=== PATIENT | female | born 1990 ===

== ENCOUNTER → 2020-03-01 09:28 | Outpatient (BNVA) | payer OTHER, SELFPAY | PROVIDERS: PCP Internal Medicine; Visit Provider Advanced Practice Midwife | DX: Z30.41 Encounter for surveillance of contraceptive pills (principal) | CPT/HCPCS: 99212 ==

== ENCOUNTER 2021-11-26 13:28 | Outpatient (REF) | payer OTHER, SELFPAY | END 2021-11-26 13:29 | disposition home or self-care (01) | LOC: HO.LAB 13:28 | PROVIDERS: Visit Provider Advanced Practice Midwife | DX: Z13.89 Encounter for screening for other disorder (principal) ==

== ENCOUNTER 2021-11-26 13:31 | Outpatient (REF) | payer OTHER, SELFPAY ==
[2021-11-26 15:00] LABS: Syphilis Screen Nonreactive (Nonreactive)
[2021-11-27 04:36] LABS: HBc Num1 0.08 S/CO (0.00-0.79); HIV AB/AG Nonreactive (Nonreactive); HIV Num 1 0.06 S/CO (0.00-0.99); Hepatitis B Core Antibody Nonreactive (Nonreactive); ~HepC Num1 0.06 S/CO (0.00-0.79); ~Hepatitis C Antibody Nonreactive (Nonreactive)
[2021-11-27 06:06] LABS: CT PCR NOT DETECTED (Not Detect.)
[2021-11-27 06:07] LABS: NG PCR DETECTED (Not Detect.)
== END 2021-11-26 13:32 | disposition home or self-care (01) ==
LOC: HO.LNP 13:31
PROVIDERS: Visit Provider Advanced Practice Midwife
DX: Z01.419 Encounter for gynecological examination (general) (routine) without abnormal findings (principal); Z11.4 Encounter for screening for human immunodeficiency virus [HIV]; Z20.2 Contact with and (suspected) exposure to infections with a predominantly sexual mode of transmission
CPT/HCPCS: 86704; 86780; 86803; 87389; 87491; 87591; 88142

== ENCOUNTER → 2021-11-28 12:35 | Outpatient (BNVA) | payer OTHER, SELFPAY | PROVIDERS: PCP Internal Medicine; Visit Provider Advanced Practice Midwife | DX: A54.9 Gonococcal infection, unspecified (principal) | CPT/HCPCS: 96372; 99211; J0696 ==

== ENCOUNTER 2022-02-26 12:42 | Outpatient (REF) | payer OTHER, SELFPAY ==
[2022-02-27 12:21] LABS: CT PCR NOT DETECTED (Not Detect.); NG PCR NOT DETECTED (Not Detect.)
== END 2022-02-26 12:43 | disposition home or self-care (01) ==
LOC: HO.LNP 12:42
PROVIDERS: PCP Internal Medicine; Visit Provider Advanced Practice Midwife
DX: Z11.3 Encounter for screening for infections with a predominantly sexual mode of transmission (principal); Z11.8 Encounter for screening for other infectious and parasitic diseases
CPT/HCPCS: 87491; 87591; 99212

== ENCOUNTER 2022-11-29 12:30 | Outpatient (AMB) | payer OTHER, SELFPAY ==
[2022-11-29 12:55] VITALS: BP 124/60; BMI 39.7
--- NOTE | 2022-11-29 12:55 | A.OFFVIS_ITS ---
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 Scribed for YUAN Wolf by Donna Mayo registered medical transcriptionist, on 11/29/2022 at 1:05 pm EST Machine Skiver Required: No Information Interpreted: non-clinical & clinical Correctional Probation Officer: Correctional Probation Officer Present (Aidyn) Allergies shellfish derived [SHELLFISH DERIVED] Allergy (Mild, Verified 11/29/22 12:58) rash shellfish Allergy (Unknown, Uncoded 11/29/22 12:58) anaphylaxis Is last menstrual period known: Yes Last menstrual period: 11/01/22 Post menopausal: No HPI HPI Comments History of Present Illness Details She is a premenopausal woman presenting for annual exam. She attempts to eat healthy and stays active at work. Currently sexually active with multiple partners (2). Uses condoms always for BC . Reports bleeding after intimacy occasionally. Has tried BC in the past and is not really interested in BC at this time due to side effects. Reports monthly periods that last approximately 4-5 days. States she is having a lot of heavy bleeding with blood clots 3/5 days for the past 3-4 months. She has to change her tampon every 30 minutes. Hx of anemia. Denies vaginal itching and irritation. Denies urinary issues. STD screening offered; she accepts. Denies family hx of breast, colon and ovarian cancer. Last pap smear 2021. [facility] Medical History Congenital hearing disorder of both ears Bipolar disorder Family History Maternal Grandmother Lung cancer Maternal Aunt Esophageal cancer Social History Alcohol intake: current Alcohol intake frequency: holidays/special occasions only Patient Tobacco Use Status: Never used Tobacco Current occupational status: student Sexual orientation: Straight/Heterosexual Gender identity: Female Female Reproductive History Menstrual Age of Menarche: 16 Duration of menses: 6-7 days Date of last menstrual period: 11/01/22 control method: none Total pregnancies: 3 Full term: 2 Number of Living Children: 2 Ab induced: 1 Date of last pap smear: 11/28/21 (negative) Review of Systems Const All systems reviewed & are unremarkable except as noted in HPI and below Reports abnormal menses Physical Exam Vital Signs: Last Vital Signs BP 124/60 11/29/22 12:55 BMI result Body Mass Index 39.7 Const General: cooperative, healthy appearing, no acute distress, well developed and alert Orientation/consciousness: patient oriented x3 HEENT Head: Yes normal to inspection Eyes General: appearance normal, both eyes and all related structures Neck Neck: Yes normal visual inspection Thyroid: Thyroid normal Chest Chest palpation & inspection: normal inspection of the chest Breast/axilla inspection: normal inspection of the breasts (no puckering, dimpling, peau de orange, retraction, discharge, masses) Breast/axilla palpation: normal palpation of the breasts Resp Effort & Inspection: normal respiratory effort GI Inspection: Yes normal to inspection Palpation (GI): Soft to palpation Rectal Exam - Female: deferred General: Yes bladder normal to palpation External Female Exam: normal external appearance and normal appearance of the urethra Speculum Exam - Vagina: normal appearance of the vagina, normal palpation and abnormal vaginal discharge (slightly yellow mucous like discharge) Speculum Exam - Cervix: normal appearance of the cervix (friable) and normal palpation Bimanual exam- vagina & uterus: normal bimanual exam, normal palpation, uterine size normal, bladder normal to palpation and normal palpation Bimanual Exam- Adnexa, other: normal adnexae and no masses Skin General skin exam: no rashes or lesions noted Neuro General: patient oriented x3 Cognition (Neuro): normal cognition Extrem General: Yes normal to inspection Psych Attitude: cooperative Thought process: Normal thought process present Assessment & Plan Assessment & Plan (1) Encounter for well woman exam: Code(s): Z01.419 - Encounter for gynecological examination (general) (routine) without abnormal findings Plan: Discussed: Current recommendations for pap smears per ASCCP guidelines. Breast awareness and periodic self breast exams. Maintaining a healthy lifestyle including a well balanced diet and routine exercise. Encouraged condom use for STD and prevention. All of her questions and concerns were addressed to the best of my ability. RTO in one year for AG. (2) Heavy menstrual bleeding: Code(s): N92.0 - Excessive and frequent menstruation with regular cycle Qualifiers: Menorrhagia type: with regular cycle Qualified Code(s): N92.0 - Excessive and frequent menstruation with regular cycle Plan: Discussed work up including pelvic US, labs. Go to ER with any prolonged or heavy bleeding. RTO for test results. (3) Potential exposure to STD: Code(s): Z20.2 - Contact with and (suspected) exposure to infections with a predominantly sexual mode of transmission (4) PCB (post coital bleeding): Code(s): N93.0 - Postcoital and contact bleeding Orders: Orders US pelvic and transvaginal Today N92.0 - Excessive and frequent menstruation with regular cycle HIV Ab/Ag Today Z20.2 - Contact with and (suspected) exposure to infections with a predominantly sexual mode of transmission Bacterial Vaginosis Panel Today N92.0 - Excessive and frequent menstruation with regular cycle, N93.0 - Postcoital and contact bleeding, Z20.2 - Contact with and (suspected) exposure to infections with a predominantly sexual mode of transmission CT NG by PCR Today N92.0 - Excessive and frequent menstruation with regular cycle, N93.0 - Postcoital and contact bleeding, Z20.2 - Contact with and (suspected) exposure to infections with a predominantly sexual mode of transmission Complete Blood Count no Diff Today N92.0 - Excessive and frequent menstruation with regular cycle Thyroid Stimulating Hormone Today N92.1 - Excessive and frequent menstruation with irregular cycle Hepatitis C Antibody Today Z20.2 - Contact with and (suspected) exposure to infections with a predominantly sexual mode of transmission Hepatitis B Core Antibody Today Z20.2 - Contact with and (suspected) exposure to infections with a predominantly sexual mode of transmission Syphilis Screen Today Z20.2 - Contact with and (suspected) exposure to infections with a predominantly sexual mode of transmission Coding Level of Care Code Est Pt Prev Care 18-39y(62746) Diagnoses Encounter for well woman exam Z01.419 Menorrhagia with regular cycle N92.0 Menorrhagia type: with regular cycle Potential exposure to STD Z20.2 PCB (post coital bleeding) N93.0
== END 2022-11-29 13:23 | disposition home or self-care (01) ==
PROVIDERS: Visit Provider Advanced Practice Midwife
DX: Z01.419 Encounter for gynecological examination (general) (routine) without abnormal findings (principal); N92.0 Excessive and frequent menstruation with regular cycle; Z20.2 Contact with and (suspected) exposure to infections with a predominantly sexual mode of transmission; N93.0 Postcoital and contact bleeding
CPT/HCPCS: 99395

== ENCOUNTER 2022-11-29 12:30 | Outpatient (REF) | payer OTHER, SELFPAY ==
[2022-11-29 13:57] LABS: Hemoglobin 12.9 g/dl (12.0-16.0); Mean Corpuscular HGB Conc 33.1 g/dl (31.0-35.0); Mean Corpuscular Hemoglobin 29.3 pg (27.0-33.0); Mean Corpuscular Volume 88.6 fL (80.0-98.0); Mean Platelet Volume 9.8 fL (9.4-12.3); Platelet Count 344 X10*3/uL (160-400); Red Cell Distribution Width 13.3 % (11.0-16.0); White Blood Count 10.1 X10*3/uL (4.8-10.8)
[2022-11-29 14:46] LABS: Thyroid Stimulating Hormone 0.57 uIU/mL (0.32-4.0)
[2022-11-29 17:57] LABS: CT PCR NOT DETECTED (Not Detect.); NG PCR NOT DETECTED (Not Detect.)
[2022-11-30 03:28] LABS: Syphilis Screen Nonreactive (Nonreactive)
[2022-11-30 03:46] LABS: HBc Num1 0.09 S/CO (0.00-0.79); HIV AB/AG Nonreactive (Nonreactive); HIV Num 1 0.07 S/CO (0.00-0.99); Hepatitis B Core Antibody Nonreactive (Nonreactive); ~HepC Num1 0.06 S/CO (0.00-0.79); ~Hepatitis C Antibody Nonreactive (Nonreactive)
[2022-11-30 11:09] LABS: BV Int Neg Control Negative (Negative); BV Int Pos Control Positive (Positive)
== END 2022-11-29 12:31 | disposition home or self-care (01) ==
LOC: HO.LAB 12:30
PROVIDERS: Visit Provider Advanced Practice Midwife
DX: N92.0 Excessive and frequent menstruation with regular cycle (principal); Z20.2 Contact with and (suspected) exposure to infections with a predominantly sexual mode of transmission; N93.0 Postcoital and contact bleeding
CPT/HCPCS: 0353U; 84443; 85027; 86704; 86780; 86803; 87389; 87480; 87510; 87660; 99395

== ENCOUNTER 2022-12-19 13:21 | Outpatient (REF) | payer OTHER, SELFPAY ==
--- NOTE | ~2022-12-19 | US_ITS ---
EXAMINATION: US PELVIS COMPLETE CLINICAL INFORMATION: Excessive and frequent bleeding COMPARISON: None TECHNIQUE: Transabdominal and transvaginal imaging was performed. FINDINGS: The uterus is of normal size and heterogeneous in echotexture measuring 9.2 x 5.1 x 6.0 cm. A regular homogeneous endometrium is identified measuring 0.9 cm. Fluid is noted in the endocervical canal. A 2.6 x 1.8 x 2.7 cm transmural myoma in the posterior body. Both ovaries are of normal size and echogenicity. The right measures 2.9 x 2.0 x 2.5 cm for a volume of 9.1 mL. The left measures 2.9 x 2.3 x 2.2 cm for a volume of 7.7 mL. There is no pelvic free fluid. US/US pelvic and transvaginal IMPRESSION: 1. A 2.7 cm transmural myoma in the posterior body. 2. Heterogeneous myometrial echotexture, nonspecific but if any clinical concern for adenomyosis MR pelvis could be obtained for definitive characterization. 3. Fluid is noted in the endocervical canal.
== END 2022-12-19 13:22 | disposition home or self-care (01) ==
LOC: HO.US 13:21
PROVIDERS: Visit Provider Advanced Practice Midwife
DX: N92.0 Excessive and frequent menstruation with regular cycle (principal)
CPT/HCPCS: 76830; 76856

== ENCOUNTER 2023-01-09 13:53 | Outpatient (AMB) | payer OTHER, SELFPAY ==
--- NOTE | 2023-01-09 14:10 | A.OFFVIS_ITS ---
Intake Vital Signs 01/09/23 14:11 Height 5 ft 6 in Weight 246 lb BMI 39.7 BP 122/80 Intake Visit Reasons: US follow up Intake Note: Scribed for Marysol Avina CNM by [facility] scribe, on 01/09/2023 at 2:36 PM, EST. Allergies shellfish derived [SHELLFISH DERIVED] Allergy (Mild, Verified 01/09/23 14:10) rash shellfish Allergy (Unknown, Uncoded 11/29/22 12:58) anaphylaxis Is last menstrual period known: Yes Last menstrual period: 01/04/23 HPI HPI Comments History of Present Illness Details The patient is a 32 year old premenopausal woman presenting today for a follow up due to pelvic pain, heavy menses. She reports her cycles are always painful. She doesn't feel OTC medication use, Ibuprofen 600 mg (3-200mg tablets), with food every 6 hours for the first 1-3days of menses only. helps much. She tried a muscle relaxant in the past that helped. She had cramps with the Mirena, gained 30lbs with the Implant, tried 3 different OCP's that made her feel off. She prefers not to take control. The patient had an ultrasound of her pelvis that showed a fibroid measuring 2.7cm. Last pap smear was UTD. [facility] Medical History Congenital hearing disorder of both ears Bipolar disorder Family History Maternal Grandmother Lung cancer Maternal Aunt Esophageal cancer Social History Alcohol intake: current Alcohol intake frequency: holidays/special occasions only Patient Tobacco Use Status: Never used Tobacco Current occupational status: student Sexual orientation: Straight/Heterosexual Gender identity: Female Female Reproductive History Menstrual Age of Menarche: 16 Duration of menses: 3-5 days Date of last menstrual period: 01/04/23 control method: none Review of Systems Const All systems reviewed & are unremarkable except as noted in HPI and below Physical Exam Vital Signs: Last Vital Signs BP 122/80 01/09/23 14:11 BMI result Body Mass Index 39.7 Other: Reports abnormal menses. Results Reviewed Results Reviewed: Ordering Physician: Marysol Avina CNM Date of Service: 12/19/22 Procedure(s): US pelvic and transvaginal Accession Number(s): [id number] cc: Marysol Avina CNM~ EXAMINATION: US PELVIS COMPLETE CLINICAL INFORMATION: Excessive and frequent bleeding COMPARISON: None TECHNIQUE: Transabdominal and transvaginal imaging was performed. FINDINGS: The uterus is of normal size and heterogeneous in echotexture measuring 9.2 x 5.1 x 6.0 cm. A regular homogeneous endometrium is identified measuring 0.9 cm. Fluid is noted in the endocervical canal. A 2.6 x 1.8 x 2.7 cm transmural myoma in the posterior body. Both ovaries are of normal size and echogenicity. The right measures 2.9 x 2.0 x 2.5 cm for a volume of 9.1 mL. The left measures 2.9 x 2.3 x 2.2 cm for a volume of 7.7 mL. There is no pelvic free fluid. US/US pelvic and transvaginal IMPRESSION: 1. A 2.7 cm transmural myoma in the posterior body. 2. Heterogeneous myometrial echotexture, nonspecific but if any clinical concern for adenomyosis MR pelvis could be obtained for definitive characterization. 3. Fluid is noted in the endocervical canal. Assessment & Plan Assessment & Plan (1) Encounter to discuss test results: Code(s): Z71.2 - Person consulting for explanation of examination or test findings Plan: Leiomyoma: common pelvic neoplasm. Differential diagnosis-may include leiomyosarcoma which is a rare uterine sarcoma 3-7/100,000, difficult to distinguish from fibroids on ultrasound from uterine sarcoma's. Unlikely any single test will have a highly positive predictive value. Hysterectomy is not recommended for sole purpose of excluding malignant neoplasm. Report any AUB. Pelvic pressure, bloating, or increased pain. Expectant management follow up in 6 months, then yearly for stability. (2) Weight gain: Code(s): R63.5 - Abnormal weight gain Plan: Encouraged the patient to follow a mediterranean diet. Exercise daily. If not doing any better talk with PCP. (3) Fibroid: Code(s): D21.9 - Benign neoplasm of connective and other soft tissue, unspecified (4) Dysmenorrhea: Code(s): N94.6 - Dysmenorrhea, unspecified Plan: Counseled re: BC options, less weight gain with some, she declines any today. OTC options reviewed, I do not recommend a muscle relaxant, but encouraged her to try NSAID's again for the first 1-3/4 days of her painful cycle q 6hrs for cramping, take with food. Heating pad as an option also. Rx sent in. Med check in 3 months. All of her questions and concerns were addressed to the best of my ability and shared decision making. She is agreeable to the plan of care. Orders: Orders US pelvic and transvaginal 6 Months D21.9 - Benign neoplasm of connective and other soft tissue, unspecified, N94.6 - Dysmenorrhea, unspecified Medications: New ibuprofen take medication 1-3 days of your menses for cramping with food 600 mg PO Q6H PRN 60 tabs 0RF pain Coding Level of Care Code Est Pt Level 3 (06877) Diagnoses Encounter to discuss test results Z71.2 Weight gain R63.5 Fibroid D21.9 Dysmenorrhea N94.6
[2023-01-09 14:11] VITALS: BP 122/80; BMI 39.7
== END 2023-01-09 14:52 | disposition home or self-care (01) ==
PROVIDERS: Visit Provider Advanced Practice Midwife
DX: Z71.2 Person consulting for explanation of examination or test findings (principal); R63.5 Abnormal weight gain; D21.9 Benign neoplasm of connective and other soft tissue, unspecified; N94.6 Dysmenorrhea, unspecified
CPT/HCPCS: 99213

== ENCOUNTER → 2023-01-09 13:53 | Outpatient (BNVA) | payer OTHER, SELFPAY | PROVIDERS: Visit Provider Advanced Practice Midwife | DX: Z71.2 Person consulting for explanation of examination or test findings (principal); R63.5 Abnormal weight gain; N94.6 Dysmenorrhea, unspecified; D21.9 Benign neoplasm of connective and other soft tissue, unspecified | CPT/HCPCS: 99212 ==

== ENCOUNTER 2023-03-06 15:04 | Outpatient (AMB) | payer OTHER, SELFPAY ==
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
[2023-03-06 15:09] VITALS: BP 124/76; BMI 39.4
== END 2023-03-06 16:03 | disposition home or self-care (01) ==
LOC: HO.HWS 15:04
PROVIDERS: Visit Provider Advanced Practice Midwife
DX: R10.2 Pelvic and perineal pain (principal); T74.21XA Adult sexual abuse, confirmed, initial encounter; Z20.2 Contact with and (suspected) exposure to infections with a predominantly sexual mode of transmission
CPT/HCPCS: 99213

== ENCOUNTER 2023-03-06 15:04 | Outpatient (REF) | payer OTHER, SELFPAY | END 2023-03-06 15:05 | disposition home or self-care (01) | LOC: HO.LNP 15:04 | PROVIDERS: Visit Provider Advanced Practice Midwife | DX: R10.2 Pelvic and perineal pain (principal); T74.21XA Adult sexual abuse, confirmed, initial encounter; Z32.02 Encounter for pregnancy test, result negative; Z20.2 Contact with and (suspected) exposure to infections with a predominantly sexual mode of transmission | CPT/HCPCS: 81003; 81025; 99212 ==

== ENCOUNTER 2023-03-06 15:59 | Outpatient (REF) | payer OTHER, SELFPAY | END 2023-03-06 16:00 | disposition home or self-care (01) | LOC: HO.LAB 15:59 | PROVIDERS: Visit Provider Advanced Practice Midwife | DX: Z13.89 Encounter for screening for other disorder (principal) ==

== ENCOUNTER 2023-03-06 16:08 | Outpatient (REF) | payer OTHER, SELFPAY | END 2023-03-06 16:09 | disposition home or self-care (01) | LOC: HO.LAB 16:08 | PROVIDERS: Visit Provider Advanced Practice Midwife | DX: R10.2 Pelvic and perineal pain (principal); T74.21XA Adult sexual abuse, confirmed, initial encounter; Z20.2 Contact with and (suspected) exposure to infections with a predominantly sexual mode of transmission | CPT/HCPCS: 0353U; 86704; 86780; 86803; 87389; 87480; 87510; 87660 ==

== ENCOUNTER 2023-07-10 12:21 | Outpatient (REF) | payer OTHER, SELFPAY ==
--- NOTE | ~2023-07-10 | US_ITS ---
EXAMINATION: US PELVIS CLINICAL INFORMATION: Leiomyoma, dysmenorrhea, follow-up 6 months for stability LMP: 2 weeks ago COMPARISON: Pelvic ultrasound 12/19/2022 TECHNIQUE: Ultrasound of the pelvis is performed using both transabdominal and transvaginal transducers along with Doppler. Transvaginal imaging is performed due to inadequate visualization transabdominally. FINDINGS: Uterus: The uterus is anteverted and measures 9.7 x 5.3 x 5.3 cm. The myometrium is heterogeneous. 2.8 x 1.8 x 2.9 cm intramural fibroid in the posterior body previously measured 2.6 x 1.8 x 2.7 cm The endometrial thickness is 1.1 cm. Adnexa: Both ovaries are visualized. There is normal color flow to the adnexa. There is no ovarian torsion. Right ovary measures 2.7 x 2.4 x 2.1 cm. Volume 7.1 mL. Left ovary measures 2.2 x 1.7 x 1.4 cm. Volume 2.7 mL. This is a small amount of free fluid within the cul-de-sac which can be a normal physiologic finding. US/US pelvic and transvaginal IMPRESSION: 1. 2.9 cm intramural fibroid in the posterior body of the uterus without significant interval change. 2. Normal ovaries.
== END 2023-07-10 12:22 | disposition home or self-care (01) ==
LOC: HO.US 12:21
PROVIDERS: Visit Provider Advanced Practice Midwife
DX: D21.9 Benign neoplasm of connective and other soft tissue, unspecified (principal); N94.6 Dysmenorrhea, unspecified
CPT/HCPCS: 76830; 76856

== ENCOUNTER 2023-09-16 12:40 | Outpatient (REF) | payer OTHER, SELFPAY ==
[2023-09-16 17:05] LABS: Bacterial Vaginosis PCR NEGATIVE (Negative); Candida Group PCR DETECTED (Not Detect); Candida glab krusei PCR NOT DETECTED (Not Detect); Trichomonas vaginalis PCR NOT DETECTED (Not Detect)
[2023-09-16 17:31] LABS: CT PCR NOT DETECTED (Not Detect.); NG PCR NOT DETECTED (Not Detect.)
[2023-09-18 16:58] LABS: HPV mRNA E6/E7 Not Detected (Not Detected)
== END 2023-09-16 12:41 | disposition home or self-care (01) ==
LOC: HO.LAB 12:40
PROVIDERS: Visit Provider Advanced Practice Midwife
DX: N93.0 Postcoital and contact bleeding (principal); N86 Erosion and ectropion of cervix uteri; N92.1 Excessive and frequent menstruation with irregular cycle; Z71.2 Person consulting for explanation of examination or test findings
CPT/HCPCS: 0352U; 36415; 81025; 87491; 87591; 87624; 88175; 99212

== ENCOUNTER 2023-09-16 12:40 | Outpatient (AMB) | payer OTHER, SELFPAY ==
--- NOTE | 2023-09-16 12:54 | A.OFFVIS_ITS ---
Vital Signs 09/16/23 12:59 Height 5 ft 6 in BP 122/68 Intake Visit Reasons: US follow up Allergies shellfish derived [SHELLFISH DERIVED] Allergy (Mild, Verified 09/16/23 12:55) rash shellfish Allergy (Unknown, Uncoded 11/29/22 12:58) anaphylaxis Is last menstrual period known: Yes Last menstrual period: 09/06/23 HPI Comments Details: Patient is here today for a follow up pelvic ultrasound history of fibroids. She admits to having some postcoital bleeding which she finds very embarrassing as she has intimacy often than this is upsetting for her. [facility] Medical History (Updated 09/16/23 @ 13:52 by Marysol Avina CNM) Fibroid Congenital hearing disorder of both ears Bipolar disorder Family History Maternal Grandmother Lung cancer Maternal Aunt Esophageal cancer Social History Alcohol intake: current Alcohol intake frequency: holidays/special occasions only Patient Tobacco Use Status: Never used Tobacco Current occupational status: student Sexual orientation: Straight/Heterosexual Gender identity: Female Female Reproductive History Menstrual Age of Menarche: 16 Date of last menstrual period: 09/06/23 Review of Systems Const All systems reviewed & are unremarkable except as noted in HPI and below Physical Exam Vital Signs: Last Vital Signs BP 122/68 09/16/23 12:59 Const General: cooperative, healthy appearing and no acute distress Orientation/consciousness: patient oriented x3 GI Inspection: Yes normal to inspection Palpation (GI): Soft to palpation and Other GI palpation findings present (Nontender) Rectal Exam - Female: visual inspection normal General: Yes bladder normal to palpation External Female Exam: normal appearance of the urethra Speculum Exam - Vagina: normal appearance of the vagina, normal palpation and normal vaginal discharge Speculum Exam - Cervix: normal appearance of the cervix, normal palpation and Other cervical findings present (Ectopy noted bled readily with Pap) Bimanual exam- vagina & uterus: normal bimanual exam, normal palpation, uterine size normal, bladder normal to palpation, normal palpation, uterine shape normal and non-tender Bimanual Exam- Adnexa, other: normal adnexae Neuro General: patient oriented x3 Results AMB Test Urine AMB Test Urine Negative Last Edit by ROHAN Gutierrez on 09/16/23 13:33 Results Reviewed Results Reviewed: [address] [address] Ultrasound Report Signed Patient: Nona Avitia MR#: [id number] : 1990 Acct:[id number] Age/Sex: 32 / F ADM Date: 07/10/23 Loc: HO.US Attending Dr: Marysol Avina CNM Ordering Physician: Marysol Avina CNM Date of Service: 07/10/23 Procedure(s): US pelvic and transvaginal Accession Number(s): [id number] cc: Marysol Avina CNM~ EXAMINATION: US PELVIS CLINICAL INFORMATION: Leiomyoma, dysmenorrhea, follow-up 6 months for stability LMP: 2 weeks ago COMPARISON: Pelvic ultrasound 12/19/2022 TECHNIQUE: Ultrasound of the pelvis is performed using both transabdominal and transvaginal transducers along with Doppler. Transvaginal imaging is performed due to inadequate visualization transabdominally. FINDINGS: Uterus: The uterus is anteverted and measures 9.7 x 5.3 x 5.3 cm. The myometrium is heterogeneous. 2.8 x 1.8 x 2.9 cm intramural fibroid in the posterior body previously measured 2.6 x 1.8 x 2.7 cm The endometrial thickness is 1.1 cm. Adnexa: Both ovaries are visualized. There is normal color flow to the adnexa. There is no ovarian torsion. Right ovary measures 2.7 x 2.4 x 2.1 cm. Volume 7.1 mL. Left ovary measures 2.2 x 1.7 x 1.4 cm. Volume 2.7 mL. This is a small amount of free fluid within the cul-de-sac which can be a normal physiologic finding. US/US pelvic and transvaginal IMPRESSION: 1. 2.9 cm intramural fibroid in the posterior body of the uterus without significant interval change. 2. Normal ovaries. Dictated By: Albania Hernandez MD Signed By: <Electronically signed by Albania Hernandez MD in OV> 07/14/23 1729 DD/ 1313 TD/TT: Press Machine Feeder: Assessment & Plan Assessment & Plan (1) PCB (post coital bleeding): Code(s): N93.0 - Postcoital and contact bleeding Category: Medical (2) Encounter to discuss test results: Code(s): Z71.2 - Person consulting for explanation of examination or test findings Category: Medical (3) Ectopy of cervix: Code(s): N86 - Erosion and ectropion of cervix uteri Plan Discussed: Ultrasound findings as noted. Cervical ectopy findings and demonstrated pictures on a microbiology lab analyst anatomical diagram brake operator sheet metal. Copy of boric acid protocol reviewed and patient given copy via camera photo. Including Pap today, GC chlamydia, BV panel, urine test-negative, pelvic ultrasound was reviewed and plan yearly pelvic exams to check stability of the fibroid. Advised pelvic rest for 2 weeks and to consider boric acid supplementation intravaginally at bedtime for 2 weeks. Patient was upset she does not think she can not refrain from intimacy for that long period of time. Follow up when Pap is available approximately 4 weeks for follow up appointment. All of her questions and concerns were addressed to the best of my ability and shared decision making. She is agreeable to the plan of care. This note is constructed using voice recognition software. While every effort has been made to ensure accuracy, installation service representative errors may have been included. Orders: Orders Bacterial Vaginosis Panel Today N93.0 - Postcoital and contact bleeding CT NG by PCR Today N93.0 - Postcoital and contact bleeding AMB HCG Urine Test Today N93.0 - Postcoital and contact bleeding Complete Blood Count no Diff Today N92.0 - Excessive and frequent menstruation with regular cycle, N93.0 - Postcoital and contact bleeding Thyroid Stimulating Hormone Today N92.0 - Excessive and frequent menstruation with regular cycle, N92.1 - Excessive and frequent menstruation with irregular cycle, N93.0 - Postcoital and contact bleeding PAP + HPV E6/E7 rfx 18/45 Today N93.0 - Postcoital and contact bleeding Coding Level of Care Code Est Pt Level 4 (44205) Diagnoses PCB (post coital bleeding) N93.0 Encounter to discuss test results Z71.2 Ectopy of cervix N86
[2023-09-16 12:59] VITALS: BP 122/68
== END 2023-09-16 15:07 | disposition home or self-care (01) ==
PROVIDERS: Visit Provider Advanced Practice Midwife
DX: N93.0 Postcoital and contact bleeding (principal); Z71.2 Person consulting for explanation of examination or test findings; N86 Erosion and ectropion of cervix uteri
CPT/HCPCS: 99214

== ENCOUNTER 2023-09-16 13:29 | Outpatient (REF) | payer OTHER, SELFPAY | END 2023-09-16 13:30 | disposition home or self-care (01) | LOC: HO.LNP 13:29 | PROVIDERS: Visit Provider Advanced Practice Midwife | DX: Z13.89 Encounter for screening for other disorder (principal) ==

== ENCOUNTER 2023-12-09 12:51 | Outpatient (AMB) | payer OTHER, SELFPAY ==
--- NOTE | 2023-12-09 12:58 | MHC.OFFVIS ---
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 Doing well with no concerns. She reports some itching and burning acid use, tried a yeast treatment, unsure if she is feeling better yet since treatment was just 2 days ago. She tries to eat healthy and stays active with exercise. Regular monthly menses, bleeding was heavier w/clots last month, overall no other concerns. Currently is not sexually active. STI screening offered; she accepts, declines STD blood work. Denies family history of breast, ovarian or colon cancer. Last pap smear 2021, negative. [facility] Medical History Fibroid Congenital hearing disorder of both ears Bipolar disorder Family History Maternal Grandmother Lung cancer Maternal Aunt Esophageal cancer Social History Alcohol intake: current Alcohol intake frequency: holidays/special occasions only Patient Tobacco Use Status: Never used Tobacco Current occupational status: student Sexual orientation: Straight/Heterosexual Gender identity: Female Female Reproductive History Menstrual Age of Menarche: 16 Duration of menses: 6-7 days Date of last menstrual period: 11/22/23 control method: none Total pregnancies: 3 Full term: 2 Number of Living Children: 2 Ab induced: 1 Date of last pap smear: 11/26/21 (neg) Review of Systems Const All systems reviewed & are unremarkable except as noted in HPI and below Reports as per HPI Eyes Reports no additional complaints ENT Reports no additional complaints Card Reports no additional complaints Resp Reports no additional complaints GI Reports as per HPI and Reports no additional complaints Reports as per HPI Musc Reports no additional complaints Skin/Breast Reports as per HPI Neuro Reports no additional complaints Psych Reports no additional complaints Endo Reports no additional complaints Jude/Lymph Reports no additional complaints Aller/Immun Reports no additional complaints Physical Exam Vital Signs: Last Vital Signs BP 128/88 12/09/23 12:59 BMI result Body Mass Index 39.9 Const General: cooperative, healthy appearing, no acute distress, well developed and alert Orientation/consciousness: patient oriented x3 HEENT Head: Yes normal to inspection Eyes General: appearance normal, both eyes and all related structures Neck Neck: Yes normal visual inspection Thyroid: Thyroid normal Chest Chest palpation & inspection: normal inspection of the chest and other (no puckering, dimpling, peau de orange, retraction, discharge, masses) Breast/axilla inspection: normal inspection of the breasts Breast/axilla palpation: normal palpation of the breasts Resp Effort & Inspection: normal respiratory effort GI Inspection: Yes normal to inspection Palpation (GI): Soft to palpation Rectal Exam - Female: deferred General: Yes bladder normal to palpation External Female Exam: normal external appearance and normal appearance of the urethra Speculum Exam - Vagina: normal appearance of the vagina, normal palpation, normal vaginal discharge and vaginal bleeding Speculum Exam - Cervix: normal appearance of the cervix and normal palpation Bimanual exam- vagina & uterus: normal bimanual exam, normal palpation, uterine size normal, bladder normal to palpation, normal palpation and non-tender Bimanual Exam- Adnexa, other: no masses OB/external & speculum: vaginal bleeding Skin General skin exam: no rashes or lesions noted Rashes: no rashes Neuro General: patient oriented x3 Cognition (Neuro): normal cognition Extrem General: Yes normal to inspection Psych Attitude: cooperative Thought process: Normal thought process present Results AMB Urinalysis, Automated UA Leukoctes 1 Jonelle/uL Last Edit by ROHAN Gutierrez on 12/09/23 13:14 UA Nitrite Negative Last Edit by ROHAN Gutierrez on 12/09/23 13:14 UA Urobilinogen 0 mg/dL Last Edit by ROHAN uGtierrez on 12/09/23 13:14 UA Protein 0.5 mg/dL Last Edit by ROHAN Gutierrez on 12/09/23 13:14 UA pH 6.0 Last Edit by ROHAN Gutierrez on 12/09/23 13:14 UA Blood 1 Buster/uL Last Edit by ROHAN Gutierrez on 12/09/23 13:14 UA Specific [place] 1.030 Last Edit by ROHAN Gutierrez on 12/09/23 13:14 UA Ketone Negative Last Edit by ROHAN Gutierrez on 12/09/23 13:14 UA Bilirubin 0 mg/dL Last Edit by ROHAN Gutierrez on 12/09/23 13:14 UA Glucose 0 mg/dL Last Edit by ROHAN Gutierrez on 12/09/23 13:14 Assessment & Plan Assessment & Plan (1) Encounter for well woman exam with routine gynecological exam: Code(s): Z01.419 - Encounter for gynecological examination (general) (routine) without abnormal findings Category: Medical (2) Vulvar itching: Code(s): L29.2 - Pruritus vulvae (3) Possible exposure to STD: Code(s): Z20.2 - Contact with and (suspected) exposure to infections with a predominantly sexual mode of transmission Plan Discussed: Current recommendations for pap smears per ASCCP guidelines. Pap obtained today. BV and GC and chlamydia cultures taken. Await results for plan of care. May use boric acid if non irritating twice a week. Breast awareness and periodic breast exams. Maintain a healthy lifestyle including a well balanced diet and routine exercise. Use condoms for STI and prevention. Monitor menstrual cycles, report any unscheduled bleeding, bleeding episodes <24 days apart or heavy/prolonged menstrual bleeding. Call the office for a follow up for any concerns. Patient verbalizes understanding and agrees to the plan of care. She was given opportunity to ask questions and all questions were answered to the best of my ability. RTO in one year for annual asphalt machine operator examination. This note is constructed using voice recognition software. While every effort has been made to ensure accuracy, plant superintendent errors may have been included. Orders: Orders Bacterial Vaginosis Panel Today N89.8 - Other specified noninflammatory disorders of vagina CT NG by PCR Today N89.8 - Other specified noninflammatory disorders of vagina AMB Urinalysis Automated Today R30.0 - Dysuria Urine Culture Today R30.0 - Dysuria, R31.9 - Hematuria, unspecified PAP + HPV E6/E7 rfx 18/45 Today Z01.419 - Encounter for gynecological examination (general) (routine) without abnormal findings Coding Level of Care Code Est Pt Prev Care 18-39y(80039) Diagnoses Encounter for well woman exam with routine gynecological exam Z01.419 Vulvar itching L29.2 Possible exposure to STD Z20.2
[2023-12-09 12:59] VITALS: BP 128/88; BMI 39.9
== END 2023-12-09 13:32 | disposition home or self-care (01) ==
PROVIDERS: PCP Internal Medicine; Visit Provider Advanced Practice Midwife
DX: Z01.419 Encounter for gynecological examination (general) (routine) without abnormal findings (principal); L29.2 Pruritus vulvae; Z20.2 Contact with and (suspected) exposure to infections with a predominantly sexual mode of transmission; R30.0 Dysuria
CPT/HCPCS: 99395

== ENCOUNTER 2023-12-09 12:51 | Outpatient (REF) | payer OTHER, SELFPAY ==
[2023-12-10 12:05] LABS: CT PCR NOT DETECTED (Not Detect.); NG PCR NOT DETECTED (Not Detect.)
[2023-12-10 14:55] LABS: Bacterial Vaginosis PCR POSITIVE (Negative); Candida Group PCR DETECTED (Not Detect); Candida glab krusei PCR NOT DETECTED (Not Detect); Trichomonas vaginalis PCR NOT DETECTED (Not Detect)
[2023-12-12 15:44] LABS: HPV mRNA E6/E7 Not Detected (Not Detected)
== END 2023-12-09 12:52 | disposition home or self-care (01) ==
LOC: HO.LAB 12:51
PROVIDERS: PCP Internal Medicine; Visit Provider Advanced Practice Midwife
DX: Z01.419 Encounter for gynecological examination (general) (routine) without abnormal findings (principal); N89.8 Other specified noninflammatory disorders of vagina; R30.0 Dysuria; R31.9 Hematuria, unspecified; L29.2 Pruritus vulvae; Z20.2 Contact with and (suspected) exposure to infections with a predominantly sexual mode of transmission
CPT/HCPCS: 0352U; 36415; 81003; 87086; 87147; 87491; 87591; 87624; 88175; 99395

== ENCOUNTER 2023-12-09 13:27 | Outpatient (REF) | payer OTHER, SELFPAY | END 2023-12-09 13:28 | disposition home or self-care (01) | LOC: HO.LNP 13:27 | PROVIDERS: Visit Provider Advanced Practice Midwife | DX: Z13.89 Encounter for screening for other disorder (principal) ==

== ENCOUNTER 2024-05-04 12:33 | Outpatient (AMB) | payer OTHER, SELFPAY ==
--- NOTE | 2024-05-04 12:50 | A.OFFVIS_ITS ---
Vital Signs 05/04/24 12:54 BP 112/76 Intake Visit Reasons: Pre counseling/ do not r/s Intake Note: Patient has been trying to conceive x2-3 mos Healthcare Manager: Healthcare Manager Present Allergies shellfish derived [SHELLFISH DERIVED] Allergy (Mild, Verified 05/04/24 12:50) rash shellfish Allergy (Unknown, Uncoded 11/29/22 12:58) anaphylaxis Is last menstrual period known: Yes Last menstrual period: 04/20/24 HPI Comments Details: Patient is here today with concerns about conceiving. She is planning a future and has been trying for 3 months. She is using the Flow jersey and notes that her menstrual cycles are regular every 3.2 weeks apart, lasting 5-6d. She admits to having intimacy most days except for while on her cycle. She is currently eating healthier and lost 10 lb over the last year. She denies taking any medications at this time. Nonsmoker, no alcohol use or vaping or drugs. She denies having external stressors, admits to planning to be in 2 months, and has issues with his ex over custody of his 2 children. [facility] Medical History Fibroid Congenital hearing disorder of both ears Bipolar disorder Family History Maternal Grandmother Lung cancer Maternal Aunt Esophageal cancer Social History Alcohol intake: current Alcohol intake frequency: holidays/special occasions only Patient Tobacco Use Status: Never used Tobacco Current occupational status: student Sexual orientation: Straight/Heterosexual Gender identity: Female Female Reproductive History Menstrual Age of Menarche: 16 Duration of menses: 3-5 days Date of last menstrual period: 04/20/24 control method: none Review of Systems Const All systems reviewed & are unremarkable except as noted in HPI and below Endo Reports no additional complaints Physical Exam Vital Signs: Last Vital Signs BP 112/76 05/04/24 12:54 Const General: cooperative, healthy appearing and no acute distress Psych Appearance: well kempt Attitude: cooperative Thought process: Normal thought process present Assessment & Plan Assessment & Plan (1) Procreative counseling and advice using natural family planning: Code(s): Z31.61 - Procreative counseling and advice using natural family planning Plan Discussed: Continuing use of flow jersey, healthy well-balanced diet, regular exercise and weight management. Often takes up to a year to conceive without any underlying conditions. Sperm rebuilding process, decreased daily intimacy practice. Insurance coverage for infertility usually at 1 year of trying. Advised to check with her own policy for coverage. Stress reduction. Rx for vitamins sent in. If late for menses do a home test and report to the office for a follow up care. Annual exam scheduled 12/20/2024. The patient expressed understanding and agreement with the plan of care. All of her questions and concerns were addressed to the best of my ability. This note is constructed using voice recognition software. While every effort has been made to ensure accuracy, z os mainframe systems programmer errors may have been included. Medications: New PNV,calcium [id number] acid 27 mg iron- 1 mg ( Vitamins Plus Low Iron) 1 tab PO DAILY 90 tabs 4RF Coding Level of Care Code Est Pt Level 3 (96848) Diagnoses Procreative counseling and advice using natural family planning Z31.61
[2024-05-04 12:54] VITALS: BP 112/76
--- OUTSIDE RECORDS SUMMARY | 2024-05-04 15:36 | XMS_ITS | Clinical Summary ---
Author Organization [facility] [address] [place] [address] [place] [phone] Phone Care Team Providers Care Political Organizer Name Role Phone Evi Ordaz MD Primary Care Provider [phone] Allergies Active Allergy Reactions Criticality Noted Date Comments Fish Containing Products Hives 03/11/2013 Shrimp Hives 03/11/2013 Active Problems Problem Noted Date Diagnosed Date Morbid obesity with BMI of 40.0-44.9, adult 02/02 Positive GBS test 09/14/2019 UTI in 09/14/2019 Overview (03/01/2024): 01/2019 MRSA (methicillin resistant staph aureus) cultur e positive 06/29/2012 Overview (03/15/2024): 4-13 bactrim I/D [facility] ER(vicodin 500 mg-5mg tab q6h prn pain) Added keflex Last Assessment & Plan: Assessment:no concerns Plan:4-13 bactrim I/D [facility] ER(vicodin 500 mg-5mg tab q6h prn pain) Added keflex Bipolar 1 disorder 03/26/2011 Overview (03/01/2024): Initial diagnosis 4 y/o per mom [facility] counseling in past 2009 d/c 2009 Looking into [facility] clinic 3-14 counseling in [facility] Last Assessment & Plan: Assessment:stable Plan:3-14 counseling in [facility] Hearing loss 03/11/2006 Overview (03/01/2024): Congenital hearing loss Encounters Date Type Department Care Team Description 03/15/2024 2:45 PM EST Office Visit Adult Medicine [address] [phone] Evi Ordaz MD Urinary urgency (Primary Dx); Acute UTI; Epistaxis; Menstrual abnormality 03/15/2024 Telephone Adult Medicine [address] [phone] Evi Ordaz MD UTI from Last 3 Months Immunizations Name Administration Dates Next Due DTaP (Infanrix) 6wks to less than 7yo ,08/28/1994,06/22/1993,05/14,02/26/1993 [id number] (Pentacel) 2mo to less than 5yo 01/31/1997,06/01/1993,05/01/1993,01/31 HPV, Quadrivalent 05/05/2008,04/16/2007,03/11/19 07 Hepatitis B Pediatric (Enger ix B; Recombivax HB) to less than 20 yo 11/07/1993,10/01/1993,02/26/1993 Influenza Quadravalent, MDCK , 0.5ml, preservative free (Flucelvax) 6mo and older 03/22/2021 Influenza trivalent, with pr eservative (Fluzone; Afluria) 6mo and older 03/11/2013,02/18/2012,04/16/2007,03/11 MMR, measles mumps and rubel la Live (Priorix; M-M-R II) 12mo and older 02/11/1997,12/21/1993 Meningococcal MCV4P 05/25/2013,03/11/2006 OPV 01/31/1997, 4,05/01/1993,01/31 PPD Test 05/25/2012 Td Tetanus diptheria (Tdvax) 7yo and older 01/12/2004 Tdap Tetanus diptheria acell ular pertussis (Boostrix; Adacel) 7yo and older 09/15/2017,04/16/2007 Surgical History Surgery Date Site/Laterality Comments WISDOM TOOTH EXTRACTION 2013 OTHER SURGICAL HISTORY D&C age 18 Medical History Medical History Date Comments Depression 04/16/2007 : abilify till 2 010,Hx cutting 2005 resolved [address] [facility] Unspecified asthma(493.90) Bipolar 1 disorder ([facility]) 03/26/2011 MRSA (methicillin resistant staph aureus) culture positive 06/29/2012 4-13 bactrim I/D [facility] ER(scott peyton 500 mg-5mg tab q6h prn pain) Added keflex Morbid obesity with BMI of 4 0.0-44.9, adult ([facility]) 05/25/2013 Family History Medical History Relation Name Comments Esophageal cancer Aunt smoker Asthma Father Colon polyps Grandparent Lung cancer Grandparent smoker Heart attack Maternal Grandfather High ch olesterol, HTN, DM Lung cancer Maternal Grandmother smoker CINDY disease Mother Rheum arthritis Mother DM Other cancer Paternal Grandmother stomach Breast cancer Neg Hx Ovarian cancer Neg Hx Uterine cancer Neg Hx Relation Name Status Comments Aunt Father Alive 1970 usvaldo Grandparent Maternal Grandfather Maternal Grandmother Mother Alive 1971 fabio Paternal Grandmother Social History Tobacco Use Types Packs/Day Years Used Date Smoking Tobacco: Never Smokeless Tobacco: Never Tobacco Cessation:Counseling Given: Not Answered Alcohol Use Standard Drinks/Week Comments Yes 0 (1 standard drink = 0.6 oz pur e alcohol) Comments Unknown Sex and Gender Information Value Date Recorded Sex Assigned at Not on file Legal Sex Female 1:46 AM EST Gender Identity Not on file Sexual Orientation Not on file Obstetrics History Last Filed Vital Signs Vital Sign Reading Time Taken Comments Blood Pressure 120/62 03/15/2024 2:40 PM EST Pulse 76 03/15/2024 2:40 PM EST Temperature 36.4 ??C (97.5 ??F) 03/15/2024 2:40 PM ES T Respiratory Rate 16 03/15/2024 2:40 PM EST Oxygen Saturation 99% 03/15/2024 2:40 PM EST Inhaled Oxygen Concentration - - Weight 108 kg (237 lb 11.2 oz) 03/15/2024 2:40 P M EST Height 165.1 cm (5' 5 ) 03/15/2024 2:40 PM EST Body Mass Index 39.56 03/15/2024 2:40 PM EST Plan of Treatment Health Maintenance Due Date Last Done Comments Hepatitis B Vaccines (4 of 4 - 4-dose series) 11/26/1993 11/07/1993, 10/01/1993, 02/26/1993 Depression Screening 02/03/2022 Social Influencers of Health Screening 02/03/2022 COVID-19 Vaccine ( season) 2023 03/08/2021, 08/12/2020, 07/15/2020 Influenza Vaccine (#1) 2023 2, 04/23/2019, 12/08/2015, Additional history exists Cervical Cancer Screening: Pap Smear 03/14/2024 03/14/2021 Cholesterol Screening (Lipid Panel) 03/22/2026 03/22/2021 DTaP,Tdap,and Td Vaccines (11 - Td or Tdap) 07/08/2029 07/09/2019, 09/15/2017, 03/31/2015, Additional history exists HIB Vaccines Completed 01/31/1997, 03/1996, 06/01/1993, Additional history exists IPV Vaccines Completed 01/31/1997, 03/1996, 06/01/1993, Additional history exists MMR Vaccines Completed 02/11/1997, 12/21/1993 HPV Vaccines Completed 05/05/2008, 04/03, 03/11/2006 Meningococcal ACWY Vaccine Aged Out 05/25/2013, No longer eligible based on patient's age to complete this topic HIV Screening Completed 09/15/2017 Hepatitis C Screening Completed 09/15/2017 Hepatitis A Vaccines Aged Out No long er eligible based on patient's age to complete this topic Meningococcal B Vacine Aged Out No lo nger eligible based on patient's age to complete this topic Pneumococcal Vaccine: Pediatrics (0 to 5 Years) and At-Risk Patients (6 to 64 Years) Aged Out No longer eligible based on patient's age to complete this topic RSV Immunization Patients Under 20 months Aged Out No longer eligible based on patient's age to complete this topic Varicella Vaccines Aged Out No longer eligible based on patient's age to complete this topic Procedures Procedure Name Priority Date/Time Associated Diagnosis Comments POC , URINE DIAGNOSTIC Routine 03/15/2024 4:10 PM EST Menstrual abnormality POC URINE NON-AUTO W/O MICRO Routine 03/15/2024 4:06 PM EST Urinary urgency CULTURE URINE Routine 03/15/2024 3:52 PM EST Acute UTI LIPID PANEL Routine 03/22/2021 HM PAP SMEAR Routine 03/14/2021 HM HEPATITIS C SCREENING Routine 09/15/2017 HM HIV SCREENING Routine 09/15/2017 from Last 3 Months or Most Recently Relevant to Health Maintenance Results * POC , urine manually resulted (03/15/2024 4:10 PM EST) HCG, Ur POC Negative Negative POC hCG Int QC Pass? Yes Yes Urine Urine specimen obtained by clean catch procedure / Unknown 03/15/2024 4:10 PM EST Evi Ordaz MD POINT OF CARE TEST ENTER/EDIT OR DERABLES Final Result * (ABNORMAL) POC Urine Non-Auto W/O Micro (03/15/2024 4:06 PM EST) Pathologist [facility] Leukocytes UA POC Positive(A) Negative Nitrite UA POC Negative Negative Urobilinogen UA POC Negative Negative Protein UA POC Positive(A) Negative Comment:trace PH UA POC 5.0 5.0 - 9.0 Blood UA POC Positive(A) Negative, Trace Specific [place] UA POC 1.010 1.001 - 1.035 Ketones UA POC Negative Negative Bilirubin UA POC Negative Negative Glucose UA POC Normal Normal, Trace Urine Urine specimen obtained by clean catch procedure / Unknown 03/15/2024 4:06 PM EST Evi Ordaz MD POINT OF CARE TEST ENTER/EDIT OR DERABLES Final Result * (ABNORMAL) Culture urine (03/15/2024 3:52 PM EST) Culture, Urine 10,000-49,000 CFU/mL Escherichia coli(A) KIRBY 03/17/2024 12:16 PM EST [facility] Urine Urine specimen obtained by clean catch procedure / Unknown Non-blood Collection / Unknown 03/15/2024 3:52 PM EST 03/15/2024 3:52 PM EST Narrative [facility] [place] - 03/17/2024 12:16 PM EST Beta Strep Group B noted. The presence of a low colony count of Beta Strep Group B may have clinical significance in women. Organism Antibiotic Method Susceptibility Escherichia coli Amoxicillin/Clavulanate KIRBY 16 ug/ml: Intermediate Escherichia coli Ampicillin/Sulbactam KIRBY >=32 ug/ml: Resistant Escherichia coli Piperacillin/Tazobactam KIRBY 8 ug/ml: Susceptible Escherichia coli Cefazolin (Urine) KIRBY 16 ug/ml: Susceptible Escherichia coli Cefoxitin KIRBY <=4 ug/ml: Susceptible Escherichia coli Ceftazidime KIRBY <=0.5 ug/ml: Susceptible Escherichia coli Ceftriaxone KIRBY <=0.25 ug/ml: Susceptible Escherichia coli Cefepime KIRBY <=0.12 ug/ml: Susceptible Escherichia coli Meropenem KIRBY <=0.25 ug/ml: Susceptible Escherichia coli Amikacin KIRBY 2 ug/ml: Susceptible Escherichia coli Gentamicin KIRBY >=16 ug/ml: Resistant Escherichia coli Ciprofloxacin KIRBY <=0.06 ug/ml: Susceptible Escherichia coli Levofloxacin KIRBY <=0.12 ug/ml: Susceptible Escherichia coli Nitrofurantoin KIRBY <=16 ug/ml: Susceptible Escherichia coli Trimethoprim/Sulfamethoxazole KIRBY >=320 ug/ml: Resistant us Evi Ordaz MD LAB MICROBIOLOGY - GENERAL ORDER SANGITA Final Result [facility] [place] [address] [place] [address], * Lipid panel (03/22/2021) LDL/HDL Ratio 3 0 - 4 Triglycerides 75 0 - 150 mg/dL Cholesterol 145 0 - 200 mg/dL HDL 55 >=40 mg/dL LDL Cholesterol 75 0 - 100 mg/dL Blood Venous blood specimen / Unknown Historical Provider LAB BLOOD ORDERABLES Glendy l Result * Pap Smear (03/14/2021) Pap smear no interpretation , abstracted Historical Provider HEALTH MAINTENANCE Final Result * HIV Screening (09/15/2017) Pathologist [facility] HIV Screening abstracted Historical Provider HEALTH MAINTENANCE Final Result * Hepatitis C Screening (09/15/2017) [facility]ologist [facility] Hepatitis C Screening abstracted Historical Provider HEALTH MAINTENANCE Final Result from Last 3 Months or Most Recently Relevant to Health Maintenance [place] [address] [place] [address] [employer] Care Teams Political Organizer Relationship Specialty Start Date End Date Evi Ordaz MD [address] [place] [address] PCP - General Internal Medicine 11/10/14
== END 2024-05-04 14:58 | disposition home or self-care (01) ==
LOC: HO.HWS 12:33
PROVIDERS: PCP Internal Medicine; Visit Provider Advanced Practice Midwife
DX: Z31.61 Procreative counseling and advice using natural family planning (principal)
CPT/HCPCS: 99213

== ENCOUNTER → 2024-05-04 12:33 | Outpatient (BNVA) | payer OTHER, SELFPAY | PROVIDERS: PCP Internal Medicine; Visit Provider Advanced Practice Midwife | DX: Z31.61 Procreative counseling and advice using natural family planning (principal) | CPT/HCPCS: 99212 ==